=== PATIENT | male | born 1940 | race Caucasian/White ===

== ENCOUNTER 2016-03-02 11:44 | Inpatient (IN) | payer OTHER ==
[~2016-03-02] VITALS: Ht 157.5 cm; Wt 83.0 kg
[~2016-03-02 11:44] MED LIST: BISA1TAB15 PO; CALC-220 PO; CGN5X PO; DENOINJ SC; DOCU100C31 PO; FERR325T51 PO; FNTTP50 TD; FURO-85 PO; HYDROCORTISONE; LACT10SO17 PO; METH10TA2 PO; NLSI SQ; ONDA4TAB46 PO; OXYC10SO; POLY335019 PO; RISP1TAB18 PO; ZLDI; ZLDI INJ
[2016-03-02] MEDS ORDERED: MIRT15TA2 PO (13:16)
[2016-03-02] MEDS ORDERED: MAGIC1 PO (13:16)
[2016-03-02] MEDS ORDERED: PRED10TA PO (13:16)
[2016-03-02] MEDS ORDERED: WHEATAB2 PO (13:16)
[2016-03-02] MEDS ORDERED: PRLSR20 PO (13:16)
[2016-03-02 13:23] LABS: CALCIUM 7.8 mg/dl (8.5-10.1); CREATININE 0.98 mg/dl (0.60-1.40); POTASSIUM 4.3 mmol/L (3.5-5.1)
[2016-03-02 13:25] LABS: ALB/GLOB RATIO 0.5 (0.9-2)
[2016-03-02 14:07] LABS: BASO % 0.1 %; BASO ABS # 0.01 K/uL (0-0.2); HEMATOCRIT 34.2 % (42-52); IG% 1.3 %; LYMPH % 5.5 %; LYMPH ABS # 0.51 K/uL (1.2-3.4); MEAN CELL VOLUME 89.3 fL (80-100); MEAN CORPUSCULAR HEMOGLOBIN 27.9 pg (25-34); MEAN CORPUSCULAR HGB CONC 31.3 g/dl (32-36); MEAN PLATELET VOLUME 9.1 fL (7.4-10.4); MONO % 1.9 %; NEUT % 91.2 %; PLATELET COUNT 342 K/uL (130-400); RED BLOOD COUNT 3.83 M/uL (4.7-6.1); WHITE BLOOD COUNT 9.27 K/uL (4.8-10.8)
[2016-03-02] MEDS ORDERED: CEFTRIAXONE SOD INJ 1 GM ADDVIAL IV STA (14:15)
[2016-03-02 14:18] LABS: PARTIAL THROMBOPLASTIN RATIO 0.9
[2016-03-02 14:49] LABS: URINE APPEARANCE CLEAR (CLEAR); URINE BILIRUBIN NEG (NEG); URINE COLOR YELLOW; URINE EPITHELIAL CELL AUTO >30 /lpf (0-5); URINE NITRITE NEG (NEG); URINE SPECIFIC GRAVITY 1.009 (1.000-1.030); UROBILINOGEN NEG (NEG)
[2016-03-02 14:52] LABS: MANUAL MICROSCOPIC REQUIRED? NO; REVIEW REQ? YES
[2016-03-02 15:09] LABS: COMPLETE YES; SCHISTOCYTES OCCASIONAL
[2016-03-02 15:31] LABS: URINE MUCUS PRESENT (NONE PRSENT)
--- NOTE | 2016-03-02 15:40 | DIAGNOSTIC IMAGING REPORT ---
ULTRASOUND RIGHT LOWER EXTREMITY VENOUS CLINICAL HISTORY: Right leg pain and erythema. COMPARISON STUDY: Right lower extremity venous ultrasound dated 06/30/2015. TECHNIQUE: Real-time, grayscale, and color Doppler sonography of the deep veins of the right lower extremity was performed from the inguinal crease to the calf. Compression and augmentation were utilized. FINDINGS: There is extensive and nearly occlusive deep venous thrombosis seen throughout the right lower extremity. This extends from the common femoral vein to the popliteal vein. Trace flow is identified. The greater saphenous vein and the profunda femoris vein at the junction with the common femoral vein are clear. The visualized calf veins are patent. IMPRESSION: Extensive right lower extremity deep venous thrombosis as detailed above. Electronically signed by: Jl Feritas M.D. 03/02/2016 3:37 PM Dictated Date/Time: 03/02/2016 3:36 PM
[2016-03-02] MEDS ORDERED: HEPARIN 25000 UNIT/500 ML D5W ONE (17:02)
[2016-03-02] MEDS ORDERED: HEPARIN SOD 5000 UNIT/0.5 ML CARP ONE (17:02)
[2016-03-02] MEDS ORDERED: ONDANSETRON INJ 2 MG/ML 2 ML VIAL IV PRN (17:30)
[2016-03-02] MEDS ORDERED: MAGNESIUM HYDROXIDE SUSP 30 ML UDC PO PRN (17:30)
[2016-03-02] MEDS ORDERED: ALUMINUM/MAGNESIUM/SIMETH (MAALOX MAX) 30 ML UDC PO PRN (17:30)
[2016-03-02] MEDS ORDERED: RISP0.5T9 PO (17:31)
[2016-03-02] MEDS ORDERED: POLYETHYLENE (MIRALAX) 17 GM PACK PO PRN (17:45)
--- NOTE | 2016-03-02 18:25 | History and Physical ---
History & Physical Date & Time of Service: Mar 02, 2016 at 17:47 Chief Complaint: Infection On Underside Of Penis Primary Care Physician: Tiago ALMONTE History of Present Illness Source: patient, clinic records, hospital records This is a 75 y/o male with a history of prostate cancer with bone metastasis, HTN, schizophrenia and GERD who presented to the ED on 03/02 with penile pain and discharge, urinary retention, and right lower extremity pain, redness and swelling. The patient is alert and oriented but a somewhat poor historian. The patient had been experiencing urinary retention a few weeks ago and a Bailey catheter had been placed. The catheter remained in place for a few weeks until the patient began to complain of pain in the penis. Upon removal a few days ago , it was discovered that the catheter had eroded through the urethra and penis causing hypospadias. The patient complains of a 9/10 sharp pain in the penis that is constant. Nothing makes the pain better or worse. There is also pus- like discharge coming from the penis. He has not been able to urinate since the Bailey was removed, requiring prn straight caths. The patient also complains of redness, swelling, pain and warmth in his right lower extremity, which also began a few weeks ago. The pain was very mild initially but has become more severe in the last few days. He currently complains of a 9/10 throbbing pain in the lateral aspect of his right calf and thigh. He also complains of tingling in the RLE since the swelling began. The patient does have a history of previous RLE DVT about 18 months ago, although he states that he "doesn't know what happened with it" and does not recall being on blood thinners. The patient denies fevers, chills, sweats, chest pain, palpitations, claudication, cough, wheezing, shortness of breath at rest, nausea, vomiting, abdominal pain, dysuria, hematuria, paralysis, and weakness. Past Medical/Surgical History Medical Problems: (1) Cataract Status: Chronic (2) Prostate ca Permanent Comment: Back pain with elevated PSA at 218 Status post prostate biopsy revealing adenocarcinoma 3+4, 4+3, and 4+4 Bone metastasis Status post completion of radiation therapy to the lumbar spine completed 2015 received 2000 cGy hypo-fractionated dosing Onset of right hip pain with radiation to the right knee Status post completion of radiation therapy to the right hip 08/19/2015 received 2000 cGy utilizing hypo-fractionated dosing Status: Chronic (3) Schizophrenia Status: Chronic HTN Family History Cancer Patient unaware of additional family history, limited historian Social History Smoking Status: Former Smoker (quit 15 years ago) Smokeless Tobacco Use: No Alcohol Use: none Drug Use: none (none currently, h/o amphetamine abuse) Marital Status: Housing status: other ([facility]) Occupational Status: unemployed, other (prisoner) Immunizations History of Influenza Vaccine: Yes Influenza Vaccine Date: Nov 20, 2012 History of Tetanus Vaccine?: utd History of Pneumococcal: Yes Pneumococcal Date: Nov 20, 2012 History of Hepatitis B Vaccine: Unknown Allergies Coded Allergies: NO KNOWN DRUG ALLERGIES (Verified Allergy, Mild, ., 01/28/16) Adhesives (Verified Allergy, Unknown, Rash, 03/02/16) Home Medications Scheduled Calcium Carbonate-Vitamin D (Caltrate 600+D), 1 TAB PO BID Denosumab (Xgeva), 120 MG SC EVERY 3 MONTHS Diphenhy/Alum/Mag/Sucralfa (Magic Swizzle - Diphenhy/Alum/Mag/Sucralfa), 1 TSP PO Q4H Fentanyl (Duragesic), 100 MCG TD [id number] Ferrous Sulfate (Iron Supplement), 1 TAB PO DAILY Furosemide (Lasix), 1 TAB PO QAM Goserelin Acetate (Zoladex), 1 DOSE INJ EVERY 3 MONTH Lactulose (Chronulac), 45 ML PO BID Mirtazapine Soltab (Remeron Soltab), 15 MG PO HS Omeprazole (Prilosec), 20 MG PO DAILY Pegfilgrastim (Neulasta), 6 MG SQ MONTHLY Risperidone (Risperdal), 1 TAB PO HS Miscellaneous Medications Goserelin Acetate (Zoladex) Prednisone Tab (Prednisone), 10 MG PO Wheat Dextrin (Benefiber), 1 TAB PO [hydrocortisone lot], 2.5 % Review of Systems Constitutional: No chills, No fatigue, No fever, No sweats, No weakness Eyes: No diplopia, No eye pain, No worsening of vision ENT: No hearing loss, No sore throat, No tinnitus Respiratory: + dyspnea on exertion (chronic), No cough, No dyspnea at rest, No wheezing Cardiovascular: + edema (RLE), No chest pain, No palpitations Abdomen: No nausea, No pain, No vomiting Musculoskeletal: + calf pain (RLE), + joint pain (chronically), + swelling (RLE ) Genitourinary - Male: + penile discharge (copious beige discharge), + problem reported (hypospadias due to catheter erosion), + urinary incontinence, + urinary retention, No dysuria, No hematuria Neurologic: + numbness/tingling (RLE), No paralysis, No weakness Integumentary: + color change (erythema in RLE), No itch, No rash Physical Exam Vital Signs Date Time Temp Pulse Resp B/P Pulse Ox O2 Delivery O2 Flow Rate FiO2 03/02/16 17:15 92 18 154/77 97 Room Air 03/02/16 14:01 101 20 137/76 95 Room Air 03/02/16 11:46 36.6 90 18 127/70 96 Room Air General Appearance: WD/WN, no apparent distress, + obese Head: normocephalic, atraumatic Eyes: normal inspection, PERRL, EOMI ENT: normal ENT inspection, hearing grossly normal, pharynx normal Neck: supple, no JVD, trachea midline Respiratory/Chest: normal breath sounds, no respiratory distress, + crackles ( L base) Cardiovascular: regular rate, rhythm, no gallop, no murmur, normal peripheral pulses Abdomen/GI: normal bowel sounds, non tender, soft Genitourinary - Male: no genital lesions, + penile abnormality (hypospadias secondary to catheter erosion), + urethral discharge (beige discharge) Extremities/Musculoskelatal: + calf tenderness, + swelling (RLE), + pertinent finding (erythema and warmth RLE) Neurologic/Psych: alert, normal mood/affect, oriented x 3 Skin: normal color, warm/dry, no rash, + pertinent finding (erythema RLE) Diagnostics Laboratory Results Results Past 24 Hours Test 03/02/16 12:48 03/02/16 13:15 03/02/16 14:10 Range/Units White Blood Count 9.27 4.8-10.8 K/uL Red Blood Count 3.83 4.7-6.1 M/uL Hemoglobin 10.7 14.0-18.0 g/dL Hematocrit 34.2 42-52 % Mean Corpuscular Volume 89.3 80-100 fL Mean Corpuscular Hemoglobin 27.9 25-34 pg Mean Corpuscular Hemoglobin Concent 31.3 32-36 g/dl Platelet Count 342 130-400 K/uL Mean Platelet Volume 9.1 7.4-10.4 fL Neutrophils (%) (Auto) 91.2 % Lymphocytes (%) (Auto) 5.5 % Monocytes (%) (Auto) 1.9 % Eosinophils (%) (Auto) 0.0 % Basophils (%) (Auto) 0.1 % Neutrophils # (Auto) 8.45 1.4-6.5 K/uL Lymphocytes # (Auto) 0.51 1.2-3.4 K/uL Monocytes # (Auto) 0.18 0.11-0.59 K/uL Eosinophils # (Auto) 0.00 0-0.5 K/uL Basophils # (Auto) 0.01 0-0.2 K/uL RDW Standard Deviation 59.2 36.4-46.3 fL RDW Coefficient of Variation 18.3 11.5-14.5 % Immature Granulocyte % (Auto) 1.3 % Immature Granulocyte # (Auto) 0.12 0.00-0.02 K/uL Schistocytes OCCASIONAL Sodium Level 140 136-145 mmol/L Potassium Level 4.3 3.5-5.1 mmol/L Chloride Level 105 98-107 mmol/L Carbon Dioxide Level 24 21-32 mmol/L Anion Gap 11.0 3-11 mmol/L Blood Urea Nitrogen 17 7-18 mg/dl Creatinine 0.98 0.60-1.40 mg/dl Est Creatinine Clear Calc Drug Dose 59.8 ml/min Estimated GFR () 86.5 Estimated GFR (Non- 74.6 BUN/Creatinine Ratio 17.0 10-20 Random Glucose 104 70-99 mg/dl Calcium Level 7.8 8.5-10.1 mg/dl Total Bilirubin 0.3 0.2-1 mg/dl Aspartate Amino Transf (AST/SGOT) 16 15-37 U/L Alanine Aminotransferase (ALT/SGPT) 23 12-78 U/L Alkaline Phosphatase 81 45-117 U/L Total Protein 7.9 6.4-8.2 gm/dl Albumin 2.7 3.4-5.0 gm/dl Globulin 5.2 2.5-4.0 gm/dl Albumin/Globulin Ratio 0.5 0.9-2 Prothrombin Time 11.0 9.0-12.0 SECONDS Prothromb Time International Ratio 1.0 0.9-1.1 Activated Partial Thromboplast Time 23.7 21.0-31.0 SECONDS Partial Thromboplastin Ratio 0.9 Urine Color YELLOW Urine Appearance CLEAR CLEAR Urine pH 7.0 4.5-7.5 Urine Specific [place] 1.009 1.000-1.030 Urine Protein NEG NEG Urine Glucose (UA) NEG NEG Urine Ketones NEG NEG Urine Occult Blood NEG NEG Urine Nitrite NEG NEG Urine Bilirubin NEG NEG Urine Urobilinogen NEG NEG Urine Leukocyte Esterase MODERATE NEG Urine WBC (Auto) 10-30 0-5 /hpf Urine RBC (Auto) 0-4 0-4 /hpf Urine Hyaline Casts (Auto) 1-5 0-5 /lpf Urine Epithelial Cells (Auto) >30 0-5 /lpf Urine Bacteria (Auto) NEG NEG Urine Renal Epithelial Cells 0-5 /lpf Urine Mucus PRESENT NONE PRSENT Microbiology Results 03/02/16 Blood Culture, Received Pending 03/02/16 Blood Culture, Received Pending 03/02/16 Urine Culture, Received Pending 03/02/16 Gram Stain, Received Pending 03/02/16 Wound Culture, Received Pending Diagnostic Radiology Reviewed the following studies and agree with interpretation as follows: Patient Name: XOCHITL CABRERA [id number] Unit Number: [id number] Dictated: 03/02/161535 Transcribed: 03/02/161535 EV Printed Date/Time: [~ rep prt dt]/[~ rep prt tm] [~ rep ct labl] - [~ rep ct ivnm] [facility] [place] [address] Dictated: 03/02/161535 Transcribed: 03/02/16 153 EV Printed Date/Time: [~ rep prt dt]/[~ rep prt tm] [~ rep ct labl] - [~ rep ct ivnm] Patient: XOCHITL CABRERA [id number] Address1: [facility] Rec: [id number] Address2: [address] [place] [address] [address] Restrepo ID: [id number] [facility] Zip: [place] [address] Date: 1940 Sex: M Room/Bed: Ref Phy: Tiago ALMONTE SC: POPPY Att Phy: Report #: [id number] Nicole Phy: Tiago ALMONTE Test: VDLEU 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 Diagnosis: INFECTION ON UNDERSIDE OF PENIS Ordering Phy: Dangelo Ceja MD Service Date: 03/02/16 Admit Date: 03/02/16 MNE: [id number] CONF: DICTATED BY: Jl Freitas M.D.]] CC: Dangelo Ceja MD SCI, Benner Endcc: [~ rep ct add3]] ULTRASOUND RIGHT LOWER EXTREMITY VENOUS CLINICAL HISTORY: Right leg pain and erythema. COMPARISON STUDY: Right lower extremity venous ultrasound dated 06/30/2015. TECHNIQUE: Real-time, grayscale, and color Doppler sonography of the deep veins of the right lower extremity was performed from the inguinal crease to the calf. Compression and augmentation were utilized. FINDINGS: There is extensive and nearly occlusive deep venous thrombosis seen throughout the right lower extremity. This extends from the common femoral vein to the popliteal vein. Trace flow is identified. The greater saphenous vein and the profunda femoris vein at the junction with the common femoral vein are clear. The visualized calf veins are patent. IMPRESSION: Extensive right lower extremity deep venous thrombosis as detailed above. Electronically signed by: Jl Freitas M.D. 03/02/2016 3:37 PM Dictated Date/Time: 03/02/2016 3:36 PM The status of this report is Signed. Draft = Not yet reviewed or approved by Radiologist. Signed = Reviewed and approved by Radiologist. <AttendingPhy></AttendingPhy> <FamilyPhy>Tiago ALMONTE</FamilyPhy> <PrimaryPhy>SCITiago</PrimaryPhy> <UnitNumber>[id number]</UnitNumber> <VisitNumber> [id number]</VisitNumber> <PatientName>XOCHITL CABRERA [id number]</PatientName> < DateOfBirth>1940</DateOfBirth> <Location>[facility]</Location> <ServiceDate>01/06</ServiceDate> <MNE>ESINDI</MNE> <OrderingPhy>Dangelo Ceja MD</ OrderingPhy> <OrderingPhyMNE>f rep ord dr tinajero</OrderingPhyMNE> <DictatingPhyMNE> f rep dict dr tinajero</DictatingPhyMNE> <CCListMNE>f rep ct lior</CCListMNE> < AdmittingPhyMNE>f pt admit dr tinajero</AdmittingPhyMNE> <AttendingPhyMNE>f pt attend dr tinajero</AttendingPhyMNE> <ConsultingPhyMNE>f pt consult dr tinajero</ConsultingPhyMNE> <FamilyPhyMNE>f pt fam dr tinajero</FamilyPhyMNE> <OtherPhyMNE>f pt other dr tinajero</OtherPhyMNE> < PrimaryPhyMNE>f pt prim care dr tinajero</PrimaryPhyMNE> <ReferringPhyMNE>f pt referring dr tinajero</ReferringPhyMNE> Impression Assessment and Plan 75 y/o male with a history of prostate cancer with bone metastasis, HTN, schizophrenia and GERD who presented to the ED on 03/02 with penile pain and discharge, urinary retention, and right lower extremity pain, redness and swelling. Bailey catheter placed for urinary retention, stayed in for weeks, eroded through urethra and penis causing hypospadias. Pt. requiring straight caths since Bailey removed. Copious beige urethral discharge. RLE redness, swelling, tenderness and warmth last few weeks. Dopplers positive for extensive RLE DVT, nearly occlusive. Afebrile, VSS, no white count. UA positive for leuks, WBC and mucus. RLE DVT--pt has h/o DVT in RLE about 18 months ago, pt not on any anticoagulation -Admit to med/surg -Heparin bolus given in ED, continue standard drip -Non-hypoxic, mildly tachycardic, no CTA for now -EKG now Hypospadias secondary to penile erosion of catheter, possible UTI -Urology consulted, Wanda Mcgregor made aware. Appreciate recs -Rocephin 1 gm IV qd -Bladder scans and prn straight caths -Urine culture, wound culture, blood cultures pending Prostate cancer w/bone metastasis -Hold Neulasta, Xgeva, and Zoladex -Continue fentanyl patch 100 mcg TD q72h HTN--stable Schizophrenia -Continue Risperdal 0.5 mg PO qhs and Remeron 15 mg PO qhs GERD -Continue omeprazole 20 mg PO qd GI prophylaxis -Maalox Max 15 mL PO q4h prn dyspepsia -Milk of magnesia 30 mL PO q6h prn constipation -Miralax 17 gm PO qd prn constipation -Zofran 4 mg IV q6h prn nausea Code Status -Level I, FULL RESUSCITATION STATUS I agree with PA assessment and plan Will treat for cellulitis as well as DVT 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 Y/N: Yes Risk Level: High
[2016-03-02 18:37] VITALS: BP 151/78; PULSE 107; TEMP 37.9; Ht 157.5 cm; Wt 83.0 kg
[2016-03-02 19:03] VITALS: BP 151/78; PULSE 107; TEMP 37.9; O2SAT 95
--- NOTE | 2016-03-02 19:04 | EMERGENCY ROOM VISIT NOTE ---
History Report prepared by Ez: Gato Whatley Under the Supervision of: Dr. Dangelo Ceja M.D. First contact with patient: 13:34 Chief Complaint: INFECTION Stated Complaint: INFECTION ON UNDERSIDE OF PENIS Nursing Triage Summary: A hole is noted to be at the center base of his penis near the scrotal sac. Small scant thick green drainage noted. He relates that it is painful. History of Present Illness The patient is a 75 year old male who presents to the Emergency Room with complaints of an infection to the under side of his penis and leg pain starting prior to arrival. The patient currently rates his discomfort as a 9/10 in severity. The patient states that he is having some right knee pain, back pain, hip pain, and neck pain for the past few days. The patient states that he had a catheter in a couple of weeks ago due to being unable to pass urine. He states that it was left in the whole time, and it was finally taken out 2-3 days ago. The patient states that he has stents in his kidneys, so he now cannot control his urination. The patient states that he has some redness in his right leg, and this is new. The patient additionally states that he has a history of blood clots in his right leg. He additionally states that he has a history of bone cancer and prostate cancer, however he still has his prostate. He additionally states that he has been taking antibiotics for the past few days by mouth. Pt denies LOC, headache, fevers, chills, diaphoresis, visual changes, chest pain, breathing difficulties, nausea, vomiting, abdominal pain, melena, hematochezia , numbness, weakness, lymphadenopathy, rash, or other complaints. Source of History: patient Onset: prior to arrival Position: knee (right), other (penis) Symptom Intensity: 9/10 Quality: other (infection) Associated Symptoms: + back pain, + neck pain Note: Associated symptoms: erythema and knee pain Review of Systems See HPI for pertinent positives and negatives. A total of ten systems were reviewed and were otherwise negative. 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 Family History No significant family history Social History Smoking Status: Never Smoker Marital Status: single Housing Status: other Occupation Status: unemployed, other Current/Historical Medications Scheduled Calcium Carbonate-Vitamin D (Caltrate 600+D), 1 TAB PO BID Denosumab (Xgeva), 120 MG SC EVERY 3 MONTHS Diphenhy/Alum/Mag/Sucralfa (Magic Swizzle - Diphenhy/Alum/Mag/Sucralfa), 1 TSP PO Q4H Fentanyl (Duragesic), 100 MCG TD CQ72HR Ferrous Sulfate (Iron Supplement), 1 TAB PO DAILY Furosemide (Lasix), 1 TAB PO QAM Goserelin Acetate (Zoladex), 1 DOSE INJ EVERY 3 MONTH Lactulose (Chronulac), 45 ML PO BID Mirtazapine Soltab (Remeron Soltab), 15 MG PO HS Omeprazole (Prilosec), 20 MG PO DAILY Pegfilgrastim (Neulasta), 6 MG SQ MONTHLY Risperidone (Risperdal), 1 TAB PO HS Miscellaneous Medications Goserelin Acetate (Zoladex) Prednisone Tab (Prednisone), 10 MG PO Wheat Dextrin (Benefiber), 1 TAB PO [hydrocortisone lot], 2.5 % Allergies Coded Allergies: NO KNOWN DRUG ALLERGIES (Verified Allergy, Mild, ., 01/28/16) Adhesives (Verified Allergy, Unknown, Rash, 03/02/16) Physical Exam Vital Signs Date Time Temp Pulse Resp B/P Pulse Ox O2 Delivery O2 Flow Rate FiO2 03/02/16 18:23 90 18 168/83 97 Room Air 03/02/16 17:15 92 18 154/77 97 Room Air 03/02/16 14:01 101 20 137/76 95 Room Air 03/02/16 11:46 36.6 90 18 127/70 96 Room Air Physical Exam GENERAL: Awake, alert, well-appearing, in no distress HENT: Normocephalic, atraumatic. Oropharynx unremarkable. EYES: Normal conjunctiva. Sclera non-icteric. NECK: Supple. No nuchal rigidity. FROM. No JVD. RESPIRATORY: Clear to auscultation. CARDIAC: Regular rate, normal rhythm. Extremities warm and well perfused. Pulses equal. ABDOMEN: Soft, non-distended. No tenderness to palpation. No rebound or guarding. No masses. RECTAL: Deferred. MUSCULOSKELETAL: Chest examination reveals no tenderness. The back is symmetrical on inspection without obvious abnormality. There is no CVA tenderness to palpation. No joint edema. LOWER EXTREMITIES: Large erythematous area on the right lateral lower leg that is tender and warm to the touch. Right leg is larger than the left : Has an acquired hypospadias. There is purulent fluid/urine freely flowing from the urethra. NEURO: Normal sensorium. No sensory or motor deficits noted. SKIN: No rash or jaundice noted. Medical Decision & Procedures ER Provider Diagnostic Interpretation: Radiology results as stated below per my review and radiologist interpretation ULTRASOUND RIGHT LOWER EXTREMITY VENOUS CLINICAL HISTORY: Right leg pain and erythema. COMPARISON STUDY: Right lower extremity venous ultrasound dated 06/30/2015. TECHNIQUE: Real-time, grayscale, and color Doppler sonography of the deep veins of the right lower extremity was performed from the inguinal crease to the calf. Compression and augmentation were utilized. FINDINGS: There is extensive and nearly occlusive deep venous thrombosis seen throughout the right lower extremity. This extends from the common femoral vein to the popliteal vein. Trace flow is identified. The greater saphenous vein and the profunda femoris vein at the junction with the common femoral vein are clear. The visualized calf veins are patent. IMPRESSION: Extensive right lower extremity deep venous thrombosis as detailed above. Electronically signed by: Jl Freitas M.D. 03/02/2016 3:37 PM Dictated Date/Time: 03/02/2016 3:36 PM Laboratory Results 03/02/16 12:48 Red Blood Count 3.83, Mean Corpuscular Volume 89.3, Mean Corpuscular Hemoglobin 27.9, Mean Corpuscular Hemoglobin Concent 31.3, Mean Platelet Volume 9.1, Neutrophils (%) (Auto) 91.2, Lymphocytes (%) (Auto) 5.5, Monocytes (%) (Auto) 1.9, Eosinophils (%) (Auto) 0.0, Basophils (%) (Auto) 0.1, Neutrophils # (Auto) 8.45, Lymphocytes # (Auto) 0.51, Monocytes # (Auto) 0.18, Eosinophils # (Auto) 0.00, Basophils # (Auto) 0.01 03/02/16 12:48 Test 03/02/16 12:48 03/02/16 13:15 03/02/16 14:10 White Blood Count 9.27 K/uL (4.8-10.8) Red Blood Count 3.83 M/uL (4.7-6.1) Hemoglobin 10.7 g/dL (14.0-18.0) Hematocrit 34.2 % (42-52) Mean Corpuscular Volume 89.3 fL (80-100) Mean Corpuscular Hemoglobin 27.9 pg (25-34) Mean Corpuscular Hemoglobin Concent 31.3 g/dl (32-36) Platelet Count 342 K/uL (130-400) Mean Platelet Volume 9.1 fL (7.4-10.4) Neutrophils (%) (Auto) 91.2 % Lymphocytes (%) (Auto) 5.5 % Monocytes (%) (Auto) 1.9 % Eosinophils (%) (Auto) 0.0 % Basophils (%) (Auto) 0.1 % Neutrophils # (Auto) 8.45 K/uL (1.4-6.5) Lymphocytes # (Auto) 0.51 K/uL (1.2-3.4) Monocytes # (Auto) 0.18 K/uL (0.11-0.59) Eosinophils # (Auto) 0.00 K/uL (0-0.5) Basophils # (Auto) 0.01 K/uL (0-0.2) RDW Standard Deviation 59.2 fL (36.4-46.3) RDW Coefficient of Variation 18.3 % (11.5-14.5) Immature Granulocyte % (Auto) 1.3 % Immature Granulocyte # (Auto) 0.12 K/uL (0.00-0.02) Schistocytes OCCASIONAL Anion Gap 11.0 mmol/L (3-11) Est Creatinine Clear Calc Drug Dose 59.8 ml/min Estimated GFR () 86.5 Estimated GFR (Non- 74.6 BUN/Creatinine Ratio 17.0 (10-20) Calcium Level 7.8 mg/dl (8.5-10.1) Total Bilirubin 0.3 mg/dl (0.2-1) Aspartate Amino Transf (AST/SGOT) 16 U/L (15-37) Alanine Aminotransferase (ALT/SGPT) 23 U/L (12-78) Alkaline Phosphatase 81 U/L (45-117) Total Protein 7.9 gm/dl (6.4-8.2) Albumin 2.7 gm/dl (3.4-5.0) Globulin 5.2 gm/dl (2.5-4.0) Albumin/Globulin Ratio 0.5 (0.9-2) Prothrombin Time 11.0 SECONDS (9.0-12.0) Prothromb Time International Ratio 1.0 (0.9-1.1) Activated Partial Thromboplast Time 23.7 SECONDS (21.0-31.0) Partial Thromboplastin Ratio 0.9 Urine Color YELLOW Urine Appearance CLEAR (CLEAR) Urine pH 7.0 (4.5-7.5) Urine Specific [place] 1.009 (1.000-1.030) Urine Protein NEG (NEG) Urine Glucose (UA) NEG (NEG) Urine Ketones NEG (NEG) Urine Occult Blood NEG (NEG) Urine Nitrite NEG (NEG) Urine Bilirubin NEG (NEG) Urine Urobilinogen NEG (NEG) Urine Leukocyte Esterase MODERATE (NEG) Urine WBC (Auto) 10-30 /hpf (0-5) Urine RBC (Auto) 0-4 /hpf (0-4) Urine Hyaline Casts (Auto) 1-5 /lpf (0-5) Urine Epithelial Cells (Auto) >30 /lpf (0-5) Urine Bacteria (Auto) NEG (NEG) Urine Renal Epithelial Cells /lpf (0-5) Urine Mucus PRESENT (NONE PRSENT) Laboratory results reviewed by me Medications Administered Medications (Trade) Dose Ordered Sig/Domenic Route Start Time Stop Time Status Last Admin Dose Admin Ceftriaxone Sodium (Rocephin Inj) 1 gm NOW STAT IV 03/02/16 14:15 03/02/16 14:16 DC 03/02/16 14:55 1 GM Heparin Sodium/ Dextrose (Heparin 25,000 Unit/500ml D5W) 25,000 unit STK-MED ONCE .ROUTE 03/02/16 17:02 03/02/16 17:03 DC 03/02/16 17:14 25,000 UNIT Heparin Sodium (Porcine) (Heparin Sq 5000 Unit/0.5ml) 5,000 unit STK-MED ONCE .ROUTE 03/02/16 17:02 03/02/16 17:03 DC 03/02/16 17:13 5,000 UNIT ED Course 1334: The patient was evaluated in room A4. A complete history and physical exam was performed. 1415: Rocephin Inj 1gm IV 1615: Heparin Sodium/ Dextrose 1ea IV 1616: I discussed the patient's case with Wanda GROSS, Urology 1633: I discussed the patient's case with Dr. Allred. He is going to evaluate the patient for further treatment Medical Decision Triage Nursing notes reviewed. The patient's presentation and history were concerning for penile issues and right leg swelling. Etiologies such as UTI, hypospadias, cellulitis, DVT, joint effusion, infection , trauma, muscular, lymphedema, idiopathic, CHF, as well as others were entertained. The patient was evaluated. His right leg was concerning for possible cellulitis versus DVT. Ultrasound imaging was ordered. examination reveals significant hypospadias but there is purulent drainage from the urethra. This discharge was cultured. UA was abnormal. Laboratory testing was otherwise unremarkable. The patient was given IV Rocephin. Ultrasound imaging was concerning for DVT. The patient was treated with IV heparin. Consultation was made with urology. The case was discussed. The patient will be seen in consultation in the hospital. Consultation made with internal medicine. The patient was evaluated in the Emergency Room for further treatment. The chart was completed utilizing [employer] Speech voice recognition software. Grammatical errors, random word insertions, pronoun errors, and incomplete sentences are an occasional consequence of this system due to software limitations, ambient noise, and hardware issues. Any formal questions or concerns about the content, text, or information contained within the body of this dictation should be directly addressed to the physician for clarification. Consults Time Called: 161 Consulting Physician: Wanda GURROLAC, Urology Returned Call: [phone] I discussed the patient's case with Wanda GROSS, Urology Additional Consults: Time Called: 161 Consulted Physician: Dr. Allred Returned Call: [phone] Additional Comments: I discussed the patient's case with Dr. Allred. He is going to evaluate the patient for further treatment Impression Primary Impression: Right leg DVT Additional Impressions: UTI (urinary tract infection) Hypospadias Scribe Attestation The scribe's documentation has been prepared under my direction and personally reviewed by me in its entirety. I confirm that the note above accurately reflects all work, treatment, procedures, and medical decision making performed by me. Departure Information Dispostion Being Evaluated By Hospitalist Referrals Tiago ALMONTE (PCP) Problem Qualifiers
[2016-03-02] MEDS: HEPARIN 25,000 UNIT/500ML D5W 500 ML IV PRN ×2 (19:29→23:08)
[2016-03-02 19:32] LABS: BASO % 0.2 %; BASO ABS # 0.01 K/uL (0-0.2); HEMATOCRIT 30.7 % (42-52); IG% 1.3 %; LYMPH % 17.1 %; LYMPH ABS # 1.06 K/uL (1.2-3.4); MEAN CORPUSCULAR HEMOGLOBIN 28.4 pg (25-34); MEAN PLATELET VOLUME 8.9 fL (7.4-10.4); MONO % 3.9 %; NEUT % 77.5 %; PLATELET COUNT 287 K/uL (130-400); RED BLOOD COUNT 3.49 M/uL (4.7-6.1); WHITE BLOOD COUNT 6.19 K/uL (4.8-10.8)
[2016-03-02 19:42] LABS: INR 1.1 (0.9-1.1); PARTIAL THROMBOPLASTIN RATIO 1.5; PROTHROMBIN TIME (PATIENT) 11.4 SECONDS (9.0-12.0)
[2016-03-02 19:52] LABS: COMPLETE YES; MEAN CORPUSCULAR HGB CONC 32.2 g/dl (32-36)
[2016-03-02] MEDS: MIRTAZAPINE SOLTAB 15 MG PO SCH (21:20)
[2016-03-02] MEDS: RISPERIDONE 0.5 MG TAB PO SCH (21:20)
[2016-03-02] MEDS: LACTULOSE SYRUP 30 GM/45 ML UDP PO SCH (21:21)
[2016-03-02] MEDS: ACETAMINOPHEN 325 MG TAB PO PRN (21:25)
[2016-03-02 23:05] VITALS: BP 122/60; PULSE 99; TEMP 37.5; O2SAT 94
[2016-03-02 23:38] LABS: PARTIAL THROMBOPLASTIN RATIO 1.2
[2016-03-02] MEDS ORDERED: HEPARIN IV BOLUS 5,000 UNIT in SYRINGE 0 ML IV STA (23:55)
[2016-03-03] MEDS: HEPARIN 25,000 UNIT/500ML D5W 500 ML IV PRN ×5 (00:04→23:02)
[2016-03-03] MEDS: CHECK FENTANYL PATCH PLACEMENT SCH ×4 (00:12→23:39)
[2016-03-03 07:10] LABS: BUN/CREATININE RATIO 17.7 (10-20); CREATININE 1.1 mg/dl (0.60-1.40); POTASSIUM 3.9 mmol/L (3.5-5.1)
[2016-03-03 07:20] LABS: BASO % 0.2 %; BASO ABS # 0.01 K/uL (0-0.2); COMPLETE YES; EOS % 0.8 %; HEMATOCRIT 31.2 % (42-52); IG% 1.2 %; LYMPH % 22.1 %; LYMPH ABS # 1.07 K/uL (1.2-3.4); MEAN CELL VOLUME 89.1 fL (80-100); MEAN CORPUSCULAR HEMOGLOBIN 28.3 pg (25-34); MEAN CORPUSCULAR HGB CONC 31.7 g/dl (32-36); MEAN PLATELET VOLUME 9.2 fL (7.4-10.4); MONO % 4.1 %; NEUT % 71.6 %; PLATELET COUNT 279 K/uL (130-400); WHITE BLOOD COUNT 4.85 K/uL (4.8-10.8)
[2016-03-03 07:38] VITALS: BP 130/80; PULSE 100; TEMP 36.8; O2SAT 92
[2016-03-03] MEDS ORDERED: FENTANYL PATCH REMOVE & WASTE SCH (07:59)
[2016-03-03] MEDS: ACETAMINOPHEN 325 MG TAB PO PRN ×2 (08:00→23:42)
[2016-03-03] MEDS ORDERED: FENTANYL 100 MCG/HR TDSY TD SCH (08:00)
[2016-03-03] MEDS: FERROUS SULFATE 325 MG TAB PO SCH (09:06)
[2016-03-03] MEDS: LACTULOSE SYRUP 30 GM/45 ML UDP PO SCH ×2 (09:06→21:26)
[2016-03-03] MEDS: PANTOprazole SOD 40 MG TAB PO SCH (09:06)
[2016-03-03] MEDS: FUROSEMIDE 20 MG TAB PO SCH (09:06)
[2016-03-03] MEDS ORDERED: CEFTRIAXONE SOD INJ 1 GM in DEXTROSE 5% ADD-VANTAGE 50ML 50 ML IV SCH (14:00)
[2016-03-03 15:22] VITALS: BP 106/56; PULSE 108; TEMP 36.9; O2SAT 94
--- NOTE | 2016-03-03 16:26 | Urology Consultation ---
History General Date of Service: Mar 03, 2016. Chief Complaint: meatal erosion Primary Care Physician: Tiago ALMONTE Pt seen a urologist before?: Yes (Dr. Sotelo ) If yes, why?: metastatic prostate cancer History of Present Illness 75 yo male presents to [facility] from [facility] group home for "infection" and penile coronal erosion. Found to have a DVT on admission as well. The pt is known to our service as a pt of Dr. Sotelo's with metastatic prostate cancer. Currently receiving chemo and has bilateral ureteral stents in place for bilateral hydro secondary to RECORDIST CHIEF. Last replaced in January. The pt did have a chronic hanson in place. Unclear when removed. Currently voided 300ml clear, yellow urine while in the room with him today. Urine and blood cultures pending. Noted to have some discharge around coronal erosion yesterday. Sent for culture by the ED. Laboratory Last 24 Hours Test 03/02/16 19:20 03/02/16 23:19 03/03/16 06:06 White Blood Count 6.19 K/uL 4.85 K/uL Red Blood Count 3.49 M/uL 3.50 M/uL Hemoglobin 9.9 g/dL 9.9 g/dL Hematocrit 30.7 % 31.2 % Mean Corpuscular Volume 88.0 fL 89.1 fL Mean Corpuscular Hemoglobin 28.4 pg 28.3 pg Mean Corpuscular Hemoglobin Concent 32.2 g/dl 31.7 g/dl Platelet Count 287 K/uL 279 K/uL Mean Platelet Volume 8.9 fL 9.2 fL Neutrophils (%) (Auto) 77.5 % 71.6 % Lymphocytes (%) (Auto) 17.1 % 22.1 % Monocytes (%) (Auto) 3.9 % 4.1 % Eosinophils (%) (Auto) 0.0 % 0.8 % Basophils (%) (Auto) 0.2 % 0.2 % Neutrophils # (Auto) 4.80 K/uL 3.47 K/uL Lymphocytes # (Auto) 1.06 K/uL 1.07 K/uL Monocytes # (Auto) 0.24 K/uL 0.20 K/uL Eosinophils # (Auto) 0.00 K/uL 0.04 K/uL Basophils # (Auto) 0.01 K/uL 0.01 K/uL RDW Standard Deviation 58.2 fL 59.0 fL RDW Coefficient of Variation 18.2 % 18.2 % Immature Granulocyte % (Auto) 1.3 % 1.2 % Immature Granulocyte # (Auto) 0.08 K/uL 0.06 K/uL Prothrombin Time 11.4 SECONDS Prothromb Time International Ratio 1.1 Activated Partial Thromboplast Time 40.1 SECONDS 31.8 SECONDS 50.9 SECONDS Partial Thromboplastin Ratio 1.5 1.2 2.0 Sodium Level 142 mmol/L Potassium Level 3.9 mmol/L Chloride Level 108 mmol/L Carbon Dioxide Level 25 mmol/L Anion Gap 9.0 mmol/L Blood Urea Nitrogen 19 mg/dl Creatinine 1.10 mg/dl Est Creatinine Clear Calc Drug Dose 53.3 ml/min Estimated GFR () 75.2 Estimated GFR (Non- 64.9 BUN/Creatinine Ratio 17.7 Random Glucose 90 mg/dl Calcium Level 7.0 mg/dl Problem List Medical Problems: (1) Hypospadias Status: Acute (2) Right leg DVT Status: Acute (3) UTI (urinary tract infection) Status: Acute Past History cancer - prostate, deep vein thrombosis, hypertension, renal disease, urinary tract infection, other (cataract, schizophrenia ) Pt had a problem w anesthesia?: No Past Surgical History: ureteral stent (bilateral for bilatearl hydro secondary to RECORDIST CHIEF.), other Family History Cancer Social History Hx Tobacco Use In Past Year?: No Smoking: quit greater than 1 year (quit 15 years ago) Alcohol: no current use Drug use: other (h/o amphetamine abuse) Marital status: single, [facility] status: other ([facility]) Occupation status: unemployed, other Immunizations History of Influenza Vaccine: Yes Influenza Vaccine Date: Nov 20, 2012 History of Tetanus Vaccine?: utd History of Pneumococcal: Yes Pneumococcal Date: Nov 20, 2012 History of Hepatitis B Vaccine: Unknown Allergies Coded Allergies: NO KNOWN DRUG ALLERGIES (Verified Allergy, Mild, ., 01/28/16) Adhesives (Verified Allergy, Unknown, Rash, 03/02/16) Medications Home Medications: Home Meds and Scripts Medications Dose Route/Sig Max Daily Dose Days Date Category Dose Instructions Risperdal (Risperidone) 0.5 Mg Tab 1 Tab PO HS 30 03/02/16 Reported Magic Swizzle - Diphenhy/Alum/Mag/Sucralfa (Miscellaneous Medication) Susp 1 Tsp PO Q4H 03/02/16 Reported 30ML DIPHENHYDRAMINE SLN 12.5/5ML 60ML MAALOX 4GM CARAFATE SWISH AND SPIT Prednisone 10 Mg Tab 10 Mg PO 03/02/16 Reported Remeron Soltab (Mirtazapine) 15 Mg Soltab 15 Mg PO HS 03/02/16 Reported Prilosec (Omeprazole) 20 Mg Capcr 20 Mg PO DAILY 03/02/16 Reported Benefiber (Wheat Dextrin) 1 Tab Tab 1 Tab PO 03/02/16 Reported Duragesic (Fentanyl) 50 Mcg Tdsy 100 Mcg TD CQ72HR 08/17/15 Reported Zoladex (Goserelin Acetate) 10.8 Mg Kit 08/04/15 Reported Iron Supplement (Ferrous Sulfate) 325 Mg Tab 1 Tab PO DAILY 30 08/04/15 Reported Neulasta (Pegfilgrastim) 6 Mg/0.6 Ml Inj 6 Mg SQ MONTHLY 06/18/15 Reported Chronulac (Lactulose) 10 Gm/15 Ml Syrp 45 Ml PO BID 06/18/15 Reported Zoladex (Goserelin Acetate) 10.8 Mg Kit 1 Dose INJ EVERY 3 MONTH 06/02/15 Reported [hydrocortisone lot] 2.5 % 05/01/15 Reported Lasix (Furosemide) 20 Mg Tab 1 Tab PO QAM 05/01/15 Reported Xgeva (Denosumab) 120 Mg/1.7 Ml Inj 120 Mg SC EVERY 3 MONTHS 06/18/14 Reported THE 1ST OF EVERY 3RD MONTH Caltrate 600+D (Calcium Carbonate-Vitamin D) 1 Tab Tab 1 Tab PO BID 06/18/14 Reported Inpatient Medications: Current Inpatient Medications Medications (Trade) Dose Ordered Sig/Domenic Route Start Time Stop Time Status Last Admin Dose Admin Acetaminophen (Tylenol Tab) 650 mg Q4H PRN PO 03/02/16 17:30 04/01/16 17:29 03/03/16 08:00 650 MG Al Hydrox/Mg Hydrox/Simethicone (Maalox Max Susp) 15 ml Q4H PRN PO 03/02/16 17:30 04/01/16 17:29 Magnesium Hydroxide (Milk Of Magnesia Susp) 30 ml Q6H PRN PO 03/02/16 17:30 04/01/16 17:29 03/03/16 08:05 30 ML Polyethylene (Miralax Powder Packet) 17 gm DAILY PRN PO 03/02/16 17:45 04/01/16 17:44 Ondansetron HCl (Zofran Inj) 4 mg Q6H PRN IV 03/02/16 17:30 04/01/16 17:29 03/02/16 23:41 4 MG Fentanyl (Duragesic Patch) 100 mcg Q3D@0800 TD 03/03/16 08:00 03/17/16 07:59 03/03/16 08:01 100 MCG Furosemide (Lasix tab) 20 mg QAM PO 03/03/16 09:00 04/02/16 08:59 03/03/16 09:06 20 MG Lactulose (Chronulac Syrup) 30 gm BID PO 03/02/16 21:00 04/01/16 20:59 03/03/16 09:06 30 GM Prednisone (PredniSONE TAB) 10 mg DAILY PO 03/03/16 09:00 04/02/16 08:59 03/03/16 09:06 10 MG Risperidone (Risperdal Tab) 0.5 mg HS PO 03/02/16 21:00 04/01/16 20:59 03/02/16 21:20 0.5 MG Ferrous Sulfate (Feosol Tab) 325 mg DAILY PO 03/03/16 09:00 04/02/16 08:59 03/03/16 09:06 325 MG Mirtazapine (Remeron Solutab) 15 mg HS PO 03/02/16 21:00 04/01/16 20:59 03/02/16 21:20 15 MG Pantoprazole Sodium 40 mg 40 mg QAM PO 03/03/16 09:00 04/02/16 08:59 03/03/16 09:06 40 MG Ceftriaxone Sodium/Dextrose (Rocephin Inj/ Dextrose Add-[place] 50ML) 50 ml @ 100 mls/hr DAILY@1400 IV 03/03/16 14:00 03/12/16 13:59 03/03/16 13:16 100 MLS/HR Miscellaneous (Fentanyl Patch Remove & Waste) 1 ea Q3D@0759 N/A 03/03/16 07:59 04/02/16 07:58 03/03/16 08:01 1 EA Miscellaneous Information 1 ea 1 ea QS N/A 03/03/16 00:00 04/02/16 00:00 03/03/16 08:01 1 EA Heparin Sodium/ Dextrose (Heparin 25,000 Unit/500ml D5W) 500 ml @ 29 mls/hr [id number] PRN IV 03/02/16 17:45 04/01/16 17:44 03/03/16 15:23 29 MLS/HR Review of Systems Review of Systems Constitutional: No chills, No fever Eyes: No double vision Neurological: No dizzy Endocrine: No excessive thirst Gastrointestinal: No abdominal pain, No nausea, No vomiting Cardiovascular: No chest pain Respiratory: No shortness of breath Skin: No rash Musculoskeletal: + arthritis Male : + weak stream, No painful urination Physical Exam Vital Signs: Vital Signs Past 12 Hours Date Time Temp Pulse Resp B/P Pulse Ox O2 Delivery O2 Flow Rate FiO2 03/03/16 15:22 36.9 108 18 106/56 94 Room Air 03/03/16 08:00 Room Air 03/03/16 07:38 36.8 100 18 130/80 92 Room Air Physical Exam: General Appearance: no apparent distress Eyes: bilateral eyes normal inspection ENT: hearing grossly normal Neck: no JVD Respiratory/Chest: no respiratory distress, no accessory muscle use Cardiovascular: no JVD Gastrointestinal: Abdomen: pertinent finding (coronal erosion vental side noted with some creamy white discharge) Extremities: normal inspection Neurologic/Psychiatric: alert, normal mood/affect, oriented x 3 Skin: normal color Assessment & Plan Assessment & Plan A/P: Coronal erosion, metastatic prostate cancer AFVSS. Coronal erosion with some discharge not unexpected after chronic hanson placement. OK to leave hanson catheter out for now as the pt prefers it not be replaced at this time. Recommend cleaning the area with soap and water daily, bladder scans qshift, and CIC PRN for PVR >300ml. The pt may f/u with Dr. Sotelo in 2-3 weeks with a PVR. Will arrange for outpatient f/u. No further management at this time. Recall PRN issues. Pt OK for d/c back to [facility] when OK with primary service. Thanks for allowing us to participate in this pt's care. The pt was seen and assessed in conjunction with Dr. Murphy this afternoon.
--- NOTE | 2016-03-03 16:53 | Hospitalist Progress Note ---
Hospitalist Progress Note Date of Service Mar 03, 2016. Subjective c/o back pain - chronic no shortness of breath while in bed. no chest pain. Constitutional: No fever Objective Vital Signs Date Time Temp Pulse Resp B/P Pulse Ox O2 Delivery O2 Flow Rate FiO2 03/03/16 15:22 36.9 108 18 106/56 94 Room Air 03/03/16 08:00 Room Air 03/03/16 07:38 36.8 100 18 130/80 92 Room Air 03/02/16 23:30 Room Air 03/02/16 23:05 37.5 99 18 122/60 94 Room Air 03/02/16 19:03 37.9 107 17 151/78 95 Room Air 03/02/16 18:45 Room Air 03/02/16 18:37 37.9 107 17 151/78 Room Air 03/02/16 18:23 90 18 168/83 97 Room Air 03/02/16 17:15 92 18 154/77 97 Room Air Physical Exam General Appearance: no apparent distress Respiratory/Chest: lungs clear, no respiratory distress Cardiovascular: regular rate, rhythm Neurologic/Psychiatric: alert, oriented x 3 Skin: warm/dry Laboratory Results Last 24 Hours Test 03/02/16 19:20 03/02/16 23:19 03/03/16 06:06 White Blood Count 6.19 K/uL 4.85 K/uL Red Blood Count 3.49 M/uL 3.50 M/uL Hemoglobin 9.9 g/dL 9.9 g/dL Hematocrit 30.7 % 31.2 % Mean Corpuscular Volume 88.0 fL 89.1 fL Mean Corpuscular Hemoglobin 28.4 pg 28.3 pg Mean Corpuscular Hemoglobin Concent 32.2 g/dl 31.7 g/dl Platelet Count 287 K/uL 279 K/uL Mean Platelet Volume 8.9 fL 9.2 fL Neutrophils (%) (Auto) 77.5 % 71.6 % Lymphocytes (%) (Auto) 17.1 % 22.1 % Monocytes (%) (Auto) 3.9 % 4.1 % Eosinophils (%) (Auto) 0.0 % 0.8 % Basophils (%) (Auto) 0.2 % 0.2 % Neutrophils # (Auto) 4.80 K/uL 3.47 K/uL Lymphocytes # (Auto) 1.06 K/uL 1.07 K/uL Monocytes # (Auto) 0.24 K/uL 0.20 K/uL Eosinophils # (Auto) 0.00 K/uL 0.04 K/uL Basophils # (Auto) 0.01 K/uL 0.01 K/uL RDW Standard Deviation 58.2 fL 59.0 fL RDW Coefficient of Variation 18.2 % 18.2 % Immature Granulocyte % (Auto) 1.3 % 1.2 % Immature Granulocyte # (Auto) 0.08 K/uL 0.06 K/uL Prothrombin Time 11.4 SECONDS Prothromb Time International Ratio 1.1 Activated Partial Thromboplast Time 40.1 SECONDS 31.8 SECONDS 50.9 SECONDS Partial Thromboplastin Ratio 1.5 1.2 2.0 Sodium Level 142 mmol/L Potassium Level 3.9 mmol/L Chloride Level 108 mmol/L Carbon Dioxide Level 25 mmol/L Anion Gap 9.0 mmol/L Blood Urea Nitrogen 19 mg/dl Creatinine 1.10 mg/dl Est Creatinine Clear Calc Drug Dose 53.3 ml/min Estimated GFR () 75.2 Estimated GFR (Non- 64.9 BUN/Creatinine Ratio 17.7 Random Glucose 90 mg/dl Calcium Level 7.0 mg/dl Assessment and Plan 75 y/o male with a history of prostate cancer with bone metastasis, HTN, schizophrenia and GERD who presented to the ED on 03/02 with penile pain and discharge, urinary retention, and right lower extremity pain, redness and swelling. Bailey catheter placed for urinary retention, stayed in for weeks, eroded through urethra and penis causing hypospadias. Pt. requiring straight caths since Bailey removed. Copious beige urethral discharge. RLE redness, swelling, tenderness and warmth last few weeks. RLE DVT--pt has h/o DVT in RLE about 18 months ago, pt not on any anticoagulation -Dopplers positive for extensive RLE DVT, nearly occlusive. -Heparin drip. -Start coumadin -lifelong AC due to repeat DVT Hypospadias secondary to penile erosion of catheter, possible UTI - Afebrile, VSS, no white count. UA positive for leuks, WBC and mucus. -Urology consulted - noted recommendation -Rocephin 1 gm IV qd -Bladder scans and prn straight caths -Urine culture, wound culture, blood cultures pending , metastatic prostate cancer Prostate cancer w/bone metastasis -Hold Neulasta, Xgeva, and Zoladex -Continue fentanyl patch 100 mcg TD q72h HTN--stable Schizophrenia -Continue Risperdal 0.5 mg PO qhs and Remeron 15 mg PO qhs GERD -Continue omeprazole 20 mg PO qd Code Status -Level I, FULL RESUSCITATION STATUS Anticipate d/c to [facility] in am
[2016-03-03] MEDS ORDERED: WARFARIN SOD 5 MG TAB PO ONE (17:00)
[2016-03-03] MEDS: MIRTAZAPINE SOLTAB 15 MG PO SCH (21:26)
[2016-03-03] MEDS: RISPERIDONE 0.5 MG TAB PO SCH (21:26)
[2016-03-04 00:11] VITALS: BP 128/71; PULSE 116; TEMP 37.2; O2SAT 93
[2016-03-04 00:56] VITALS: PULSE 106
[2016-03-04] MEDS: HEPARIN 25,000 UNIT/500ML D5W 500 ML IV PRN ×3 (04:53→08:25)
[2016-03-04 06:56] LABS: BASO % 0.3 %; BASO ABS # 0.01 K/uL (0-0.2); COMPLETE YES; EOS % 1.6 %; HEMATOCRIT 28.1 % (42-52); IG% 0.3 %; LYMPH % 22.3 %; LYMPH ABS # 0.82 K/uL (1.2-3.4); MEAN CELL VOLUME 88.4 fL (80-100); MEAN CORPUSCULAR HEMOGLOBIN 28.3 pg (25-34); MEAN PLATELET VOLUME 9.1 fL (7.4-10.4); MONO % 2.5 %; PLATELET COUNT 236 K/uL (130-400); RED BLOOD COUNT 3.18 M/uL (4.7-6.1); WHITE BLOOD COUNT 3.67 K/uL (4.8-10.8)
[2016-03-04 07:02] LABS: PARTIAL THROMBOPLASTIN RATIO 1.6
[2016-03-04 07:13] VITALS: BP 152/80; PULSE 99; TEMP 36.8; O2SAT 93
[2016-03-04 07:22] LABS: BUN/CREATININE RATIO 16.4 (10-20); CALCIUM 6.7 mg/dl (8.5-10.1); POTASSIUM 3.6 mmol/L (3.5-5.1)
[2016-03-04] MEDS: CHECK FENTANYL PATCH PLACEMENT SCH (07:48)
[2016-03-04 08:00] VITALS: O2SAT 93
[2016-03-04] MEDS ORDERED: HEPARIN IV BOLUS 3,000 UNIT in SYRINGE 0 ML IV ONE (08:15)
[2016-03-04] MEDS ORDERED: CMD5 PO (08:36)
--- NOTE | 2016-03-04 08:44 | Discharge Instructions ---
Discharge Instructions Admission Reason for Admission: Dvt, Urethral Erosion By Catheter Discharge Discharge Diagnosis / Problem: (1) DVT (deep venous thrombosis) VTE Date & Time Date of VTE Diagnosis: Mar 02, 2016 Time of VTE Diagnosis: 13:41 Discharge Goals Goal(s): Improve disease control Activity Recommendations Activity Limitations: resume your previous activity With physician at [facility] facility . Instructions / Follow-Up Instructions / Follow-Up Medication Instructions: * Warfarin is a medicine prescribed to prevent blood clots * Warfarin will thin your blood and help prevent new clots * Take your medications exactly as directed * Never skip a dose. Never take a double dose. If you miss a dose, take it as soon as you remember * It is important for your doctor to monitor your prothrombin time (PT). This is a lab test * Keep your appointment for lab tests Risk of Adverse Drug Reactions and Interactions: * Warfarin increases your risk of bleeding * The food you eat and other medications you take can affect how Warfarin works in your body * Ask your doctor about daily aspirin therapy * It is very important to talk with your doctor about all of the other medicines , antibiotics, vitamins or herbal products that you are taking * All of your medication must be approved by your doctor, including new medicines, as well as medicines you have taken before you started taking Warfarin Diet: * In order for Warfarin to work properly, it is important to keep your intake of Vitamin K as consistent as possible * You should avoid any sudden change in Vitamin K intake * Report any significant changes in your diet or weight to your doctor Call your Primary Care doctor if you experience any of the following: * Swelling or Pain in your leg * Sudden, continuous pain deep in a muscle * Pain that worsens when you are active or when you stand still for a long time * Chest Pain * Sudden Shortness of Breath * Rapid or pounding heart beat * Fainting * Dizziness * Cough with blood or bloody sputum * Sweating more than normal * Bruises * Heavy or uncontrolled bleeding * Blood in your urine, stool or vomit * Black or tarry stools Caring for Your Self at Home: * Avoid sitting, standing or lying down for long periods without moving your legs and feet * When traveling by car, stop to get out and move around at least once every 3 hours * On long airplane, train or bus rides, get up and move around when possible * If you can't get up, wiggle your toes and tighten your calves to keep your blood moving Follow Up: It is important for you to keep your follow up appointments with your medical provider. Current Hospital Diet Patient's current hospital diet: Regular Diet Discharge Diet Recommended Diet: Low Sodium Diet (2gm Na) Pending Studies Studies pending at discharge: no Medical Emergencies . Who to Call and When: Medical Emergencies: If at any time you feel your situation is an emergency, please call 911 immediately. . Non-Emergent Contact Non-Emergency issues call your: Primary Care Provider . . "Provider Documentation" section prepared by Tamara Cheng. VTE Core Measure Inpt VTE Proph given/why not?: Other Anticoagulation (Heparin drip) Reason no anticoag overlap I/P: Treatment provided - N/A Reason no anticoag overlap @DC: Treatment provided - N/A
[2016-03-04] MEDS ORDERED: ENOX1INJ11 SQ (08:45)
[2016-03-04] MEDS: LACTULOSE SYRUP 30 GM/45 ML UDP PO SCH (09:00)
[2016-03-04] MEDS: FUROSEMIDE 20 MG TAB PO SCH (09:01)
[2016-03-04] MEDS: FERROUS SULFATE 325 MG TAB PO SCH (09:01)
[2016-03-04 09:34] VITALS: BP 152/80; PULSE 99; TEMP 36.8; O2SAT 93
[2016-03-04] MEDS ORDERED: PANT40TA PO (09:37)
[2016-03-04] MEDS: PANTOprazole SOD 40 MG TAB PO SCH (10:21)
[2016-03-04] MEDS ORDERED: ENOXAPARIN 80 MG/0.8 ML SYR SQ ONE (11:00)
[2016-03-04] MEDS ORDERED: NURSING VERBAL MED ORDER ONE (11:15)
[2016-03-04] MEDS ORDERED: WARFARIN SOD 5 MG TAB PO SCH (16:00)
--- NOTE | 2016-03-04 17:56 | Discharge Summary ---
Discharge Summary Admission Date: Mar 02, 2016 at 17:35 Discharge Date: Mar 04, 2016 Discharge Disposition: Home ([facility]) Principal Diagnosis: Acute right leg DVT Immunizations: Have You Had Influenza Vaccine: Yes Influenza Vaccine Date: Nov 20, 2012 History of Tetanus Vaccine?: utd History of Pneumococcal: Yes Pneumococcal Date: Nov 20, 2012 History of Hepatitis B Vaccine: Unknown Consultations: Urology - [facility] Medication Reconciliation New Medications: Enoxaparin Sodium (Lovenox) 80 Mg/0.8 Ml Inj 80 MG SQ Q12 for 7 Days, SYR until INR therapeutic Pantoprazole (Protonix) 40 Mg Tab 40 MG PO DAILY, #30 TAB Warfarin Sod (Coumadin) 5 Mg Tab 5 MG PO DAILY@16 for 30 Days, #30 TAB Continued Medications: Calcium Carbonate-Vitamin D (Caltrate 600+D) 1 Tab Tab 1 TAB PO BID Denosumab (Xgeva) 120 Mg/1.7 Ml Inj 120 MG SC EVERY 3 MONTHS THE 1ST OF EVERY 3RD MONTH Diphenhy/Alum/Mag/Sucralfa (Magic Swizzle - Diphenhy/Alum/Mag/Sucralfa) Susp 1 TSP PO Q4H, #200 ML 1 Refill 30ML DIPHENHYDRAMINE SLN 12.5/5ML 60ML MAALOX 4GM CARAFATE SWISH AND SPIT Fentanyl (Duragesic) 50 Mcg Tdsy 100 MCG TD [id number], PATCH Ferrous Sulfate (Iron Supplement) 325 Mg Tab 1 TAB PO DAILY for 30 Days, #30 TAB 10 Refills Furosemide (Lasix) 20 Mg Tab 1 TAB PO QAM, TAB 1 Refill Goserelin Acetate (Zoladex) 10.8 Mg Kit 1 DOSE INJ EVERY 3 MONTH Goserelin Acetate (Zoladex) 10.8 Mg Kit Lactulose (Chronulac) 10 Gm/15 Ml Syrp 45 ML PO BID Mirtazapine Soltab (Remeron Soltab) 15 Mg Soltab 15 MG PO HS, TAB Omeprazole (Prilosec) 20 Mg Capcr 20 MG PO DAILY, CAP Pegfilgrastim (Neulasta) 6 Mg/0.6 Ml Inj 6 MG SQ MONTHLY Prednisone Tab (Prednisone) 10 Mg Tab 10 MG PO, TAB Risperidone (Risperdal) 0.5 Mg Tab 1 TAB PO HS for 30 Days, #30 TAB Wheat Dextrin (Benefiber) 1 Tab Tab 1 TAB PO [hydrocortisone lot] () 2.5 % Discharge Exam Last 24 Hours Test 03/04/16 06:35 White Blood Count 3.67 K/uL Red Blood Count 3.18 M/uL Hemoglobin 9.0 g/dL Hematocrit 28.1 % Mean Corpuscular Volume 88.4 fL Mean Corpuscular Hemoglobin 28.3 pg Mean Corpuscular Hemoglobin Concent 32.0 g/dl Platelet Count 236 K/uL Mean Platelet Volume 9.1 fL Neutrophils (%) (Auto) 73.0 % Lymphocytes (%) (Auto) 22.3 % Monocytes (%) (Auto) 2.5 % Eosinophils (%) (Auto) 1.6 % Basophils (%) (Auto) 0.3 % Neutrophils # (Auto) 2.68 K/uL Lymphocytes # (Auto) 0.82 K/uL Monocytes # (Auto) 0.09 K/uL Eosinophils # (Auto) 0.06 K/uL Basophils # (Auto) 0.01 K/uL RDW Standard Deviation 58.6 fL RDW Coefficient of Variation 18.1 % Immature Granulocyte % (Auto) 0.3 % Immature Granulocyte # (Auto) 0.01 K/uL Activated Partial Thromboplast Time 41.8 SECONDS Partial Thromboplastin Ratio 1.6 Sodium Level 136 mmol/L Potassium Level 3.6 mmol/L Chloride Level 102 mmol/L Carbon Dioxide Level 26 mmol/L Anion Gap 8.0 mmol/L Blood Urea Nitrogen 16 mg/dl Creatinine 1.00 mg/dl Est Creatinine Clear Calc Drug Dose 58.6 ml/min Estimated GFR () 84.4 Estimated GFR (Non- 72.8 BUN/Creatinine Ratio 16.4 Random Glucose 104 mg/dl Calcium Level 6.7 mg/dl Review of Systems: Constitutional: No fever Respiratory: No shortness of breath Cardiovascular: No chest pain Abdomen: No nausea Musculoskeletal: + problem reported (right leg swelling/pain better) Physical Exam: General Appearance: no apparent distress Respiratory/Chest: lungs clear, no respiratory distress Cardiovascular: regular rate, rhythm Abdomen / GI: normal bowel sounds, non tender, soft Extremities: + pertinent finding (right leg swelling better) Neurologic/Psychiatric: alert, oriented x 3 Skin: warm/dry Hospital Course 75 y/o male with a history of prostate cancer with bone metastasis, HTN, schizophrenia and GERD who presented to the ED on 03/02 with penile pain and discharge, urinary retention, and right lower extremity pain, redness and swelling. Bailey catheter placed for urinary retention, stayed in for weeks, eroded through urethra and penis causing hypospadias. Pt. requiring straight caths since Bailey removed. Copious beige urethral discharge. RLE redness, swelling, tenderness and warmth last few weeks. RLE DVT--pt has h/o DVT in RLE about 18 months ago, -Dopplers positive for extensive RLE DVT, nearly occlusive. -Started on Heparin drip and later coumadin added. Home on lovenox bridge with coumadin. 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 UA positive for leuks, WBC and mucus. -Urology consulted - no further work up needed. Recommended prn [facility]IC -Urine culture came back negative. Rocephin discontinued. -Bladder scans and prn straight caths -Deep wound culture with multiple bacterial growth - likely contaminant/emilia Prostate cancer w/bone metastasis -On Neulasta, Xgeva, and Zoladex -Continued fentanyl patch 100 mcg TD q72h HTN--stable Schizophrenia -Continued Risperdal 0.5 mg PO qhs and Remeron 15 mg PO qhs GERD -Continued omeprazole 20 mg PO qd Total Time Spent: Greater than 30 minutes (40) This includes examination of the patient, discharge planning, medication reconciliation, and communication with other providers. Discharge Instructions Please refer to the electronic Patient Visit Report (Discharge Instructions) for additional information. Additional Copies To Tiago ALMONTE
== END 2016-03-04 12:14 | disposition home or self-care (01) | DRG 699 ==
LOC: ENRESERVDT → ENRESERVTM → C.EDB 11:49 → C.MSW 17:35 → EDBEDREQSVC 17:43 → EDBEDREQ 17:43
PROVIDERS: ADMIT Hospitalist; ATTEND Family Medicine
DX: T83.098A Other mechanical complication of other urinary catheter, initial encounter (principal); I82.401 Acute embolism and thrombosis of unspecified deep veins of right lower extremity; C79.51 Secondary malignant neoplasm of bone; N39.0 Urinary tract infection, site not specified; Y84.6 Urinary catheterization as the cause of abnormal reaction of the patient, or of later complication, without mention of misadventure at the time of the procedure; C61 Malignant neoplasm of prostate; I10 Essential (primary) hypertension; F20.9 Schizophrenia, unspecified; K21.9 Gastro-esophageal reflux disease without esophagitis; Z87.891 Personal history of nicotine dependence; Z79.899 Other long term (current) drug therapy; Q54.1 Hypospadias, penile